=== PATIENT | female | born 1970 | race Caucasian/White ===

== ENCOUNTER 2022-06-19 14:10 | Outpatient (CLI) | payer OTHER | END 2022-06-19 17:50 | disposition home or self-care (01) | LOC: SMI 14:10 | PROVIDERS: ATTEND Family Medicine | DX: K44.9 Diaphragmatic hernia without obstruction or gangrene (principal); K80.50 Calculus of bile duct without cholangitis or cholecystitis without obstruction; M41.85 Other forms of scoliosis, thoracolumbar region | CPT/HCPCS: 74181 ==